=== PATIENT | male | born 1995 | race Two or more races ===

== ENCOUNTER 2020-01-15 22:47 | Emergency (ER) | payer BC ==
[2020-01-15] MEDS ORDERED: OXYCODONE-ACETAMINOPHEN 5-325 MG TABLET PO ONE (23:45)
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
[2020-01-16] MEDS ORDERED: HYDROCODONE/ACETAMINOPHEN 5-325 MG TABLET PO ONE (01:16)
[2020-01-16] MEDS ORDERED: SILVER SULFADIAZINE 1% CREAM 25 GM TP ONE (01:31)
[2020-01-16] MEDS ORDERED: HYDROCODONE/ACETAMINOPHEN 5-325 MG (6 TAB/ER DISP) PO PRN (01:33)
[2020-01-16 02:05] VITALS: BP 127/79
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
== END 2020-01-16 02:06 | disposition home or self-care (01) ==
LOC: ER 22:47
DX: T23.251A Burn of second degree of right palm, initial encounter (principal); T23.241A Burn of second degree of multiple right fingers (nail), including thumb, initial encounter; W39.XXXA Discharge of firework, initial encounter
CPT/HCPCS: 99283